=== PATIENT | female | born 1970 | race Caucasian/White ===

== ENCOUNTER → 2019-11-11 | Outpatient (CLI) | payer BC | LOC: MAMMO 13:55 | PROVIDERS: ATTEND Plastic Surgery | DX: Z12.31 Encounter for screening mammogram for malignant neoplasm of breast (principal) | CPT/HCPCS: 77067 ==

== ENCOUNTER → 2019-12-09 | Outpatient (CLI) | payer BC ==
--- NOTE | 2019-12-12 08:55 | Diagnostic Imaging Report ---
#[id number] - MGDXLT #UNILATERAL LEFT DIGITAL DIAGNOSTIC MAMMOGRAM WITH SPOT COMPRESSION: 12/09/2019 Comparison is made to exams dated: 11/11/2019 mammogram - [facility] and 11/09/2018 mammogram - [facility]. Current study contains 5 films. The tissue of the left breast is heterogeneously dense. This may lower the sensitivity of mammography. Additional views demonstrate no underlying abnormality. Benign appearing calcifications are noted in the left breast. No significant masses, calcifications, or other findings are seen in the breast. IMPRESSION: BENIGN See the report for ultrasound performed the same day for additional details. There is no mammographic evidence of malignancy. A 1 year screening mammogram is recommended. The patient will be notified by letter of the results. CATHY blunt/penrad:12/09/2019 16:14:59 [employer] Operator: Iliana LEDEZMA(Tom)(Kaleb), [facility] letter sent: Normal Exam Mammogram BI-RADS: 2 Benign
--- NOTE | 2019-12-12 08:55 | Diagnostic Imaging Report ---
#[id number] - USBRELIMLT ULTRASOUND OF THE LEFT BREAST : 12/09/2019 Comparison is made to exams dated: 12/09/2019 mammogram and 11/11/2019 mammogram - [facility]. Real-time ultrasound was performed on the left breast. There are no solid or cystic masses identified. IMPRESSION: BENIGN There is no sonographic evidence of malignancy. A 1 year screening mammogram is recommended. CATHY SORIANO M.D. ct/penrad:12/09/2019 16:15:23 [employer] Customer Experience Specialist: ANSELMO BRITO [facility], [facility] letter sent: Normal Exam Ultrasound BI-RADS: 2 Benign
== END ==
LOC: MAMMO 11:40
PROVIDERS: ATTEND Plastic Surgery
DX: R92.8 Other abnormal and inconclusive findings on diagnostic imaging of breast (principal)